=== PATIENT | male | born 1965 | race Caucasian/White ===

== ENCOUNTER 2017-02-14 16:43 | Inpatient (IN) | payer MEDICARE, MEDICAID ==
[~2017-02-14] VITALS: Ht 180.3 cm; Wt 74.0 kg
[~2017-02-14 16:43] MED LIST: DULO60CA44 PO; GABA-531 PO; OLAN15TA18 PO
[2017-02-14] MEDS ORDERED: TRAZ-144 PO (16:50)
[2017-02-14] MEDS ORDERED: RISP.5 PO (16:50)
[2017-02-14] MEDS ORDERED: PERCT10 PO (16:50)
[2017-02-14 18:08] LABS: BASOPHILS % (AUTO) 0.4 % (0.0-2.0); EOSINOPHILS % (AUTO) 3.2 % (1.0-6.0); HEMATOCRIT 39.1 % (41-53); HEMOGLOBIN 13.7 g/dL (13.5-17.5); LYMPHOCYTES # (AUTO) 0.9 K/uL (1.0-4.8); LYMPHOCYTES % (AUTO) 14.8 % (22.0-44.0); MEAN CORPUSCULAR HEMOGLOBIN 31.8 pg (26.0-34.0); MEAN CORPUSCULAR VOLUME 91 fL (80-100); MONOCYTES # (AUTO) 0.4 K/uL (0.1-1.0); MONOCYTES % (AUTO) 6.4 % (2.0-9.0); NEUTROPHILS # (AUTO) 4.3 K/uL (1.8-7.7); NEUTROPHILS % (AUTO) 75.2 % (40.0-70.0); PLATELET COUNT (AUTO) 219 K/uL (150-450); RED BLOOD CELL COUNT(AUTO) 4.31 MIL/uL (4.50-5.90); RED CELL DISTRIBUTION WIDTH 12.9 % (11.5-14.5); WHITE BLOOD COUNT (AUTO) 5.7 K/uL (4.5-11.0)
[2017-02-14 18:18] LABS: ANION GAP 6 mmol/L (8-16); CALCIUM, TOTAL 8.8 mg/dL (8.8-10.5); CARBON DIOXIDE 31 mmol/L (22-29); CHLORIDE 106 mmol/L (98-107); GLOMERULAR FILTR. RATE CALC > 60 mL/min (>60); POTASSIUM 4.3 mmol/L (3.5-5.1); SODIUM SERUM 143 mmol/L (136-145); UREA NITROGEN, BLOOD 21 mg/dL (7-18)
[2017-02-14 18:23] LABS: ALANINE AMINOTRANSFERASE 65 U/L (12-78); ALBUMIN 4.1 g/dL (3.4-5.0); ASPARTATE AMINOTRANSFERASE 30 U/L (15-37); BILIRUBIN,TOTAL 0.2 mg/dL (0.1-1.0); TOTAL PROTEIN, SERUM 6.7 g/dL (6.4-8.2)
[2017-02-14] MEDS ORDERED: LORazepam 2 MG TABLET PO ONE (18:45)
[2017-02-14] MEDS ORDERED: OxyCODONE HCL/ACETAMINOPHEN 5-325 MG TABLET PO ONE (19:15)
[2017-02-14 19:52] LABS: CHOL/HDL RATIO 2.8 (4.2-7.3)
[2017-02-14 21:00] VITALS: BP 123/78
[2017-02-14] MEDS ORDERED: ACETAMINOPHEN 325 MG TABLET PO PRN (21:30)
[2017-02-15 00:05] VITALS: BP 125/70
[2017-02-15] MEDS: ZOLPIDEM TARTRATE 10 MG TABLET PO PRN ×2 (00:08→20:58)
[2017-02-15 05:15] VITALS: BP 116/81
[2017-02-15] MEDS: IBUPROFEN 400 MG TABLET PO PRN (05:32)
[2017-02-15] MEDS: HALOPERIDOL 5 MG TABLET PO PRN ×2 (05:46→10:09)
[2017-02-15] MEDS: LORazepam 2 MG TABLET PO PRN ×2 (05:46→10:09)
[2017-02-15 08:28] VITALS: BP 130/54
[2017-02-15] MEDS: NICOTINE 14 MG/24 HOUR PATCH TD SCH (08:52)
[2017-02-15] MEDS: GABAPENTIN 300 MG CAPSULE PO SCH ×2 (14:02→17:11)
[2017-02-15 16:24] VITALS: BP 125/85
[2017-02-15] MEDS: DULoxetine HCL 60 MG CAPSULE PO SCH (17:11)
[2017-02-15] MEDS: RisperiDONE 0.5 MG TABLET PO SCH (17:11)
[2017-02-15] MEDS: TraZODone HCL 50 MG TABLET PO SCH (17:11)
[2017-02-16 01:50] VITALS: BP 115/85
[2017-02-16] MEDS: IBUPROFEN 400 MG TABLET PO PRN (01:57)
[2017-02-16] MEDS: HALOPERIDOL 5 MG TABLET PO PRN ×2 (01:57→08:18)
[2017-02-16] MEDS: LORazepam 2 MG TABLET PO PRN ×3 (01:57→14:35)
[2017-02-16] MEDS: NICOTINE 14 MG/24 HOUR PATCH TD SCH (08:18)
[2017-02-16] MEDS: GABAPENTIN 300 MG CAPSULE PO SCH ×3 (08:19→16:23)
[2017-02-16] MEDS: DULoxetine HCL 60 MG CAPSULE PO SCH ×2 (08:19→16:23)
[2017-02-16] MEDS: RisperiDONE 0.5 MG TABLET PO SCH ×2 (08:19→16:23)
[2017-02-16] MEDS: TraZODone HCL 50 MG TABLET PO SCH ×2 (08:19→16:23)
[2017-02-16] MEDS ORDERED: DENTURE ADHESIVE 68 GM CREAM DT PRN (10:45)
[2017-02-16 10:53] VITALS: BP 120/84
[2017-02-16 16:00] VITALS: BP 118/69
[2017-02-16] MEDS: ZOLPIDEM TARTRATE 10 MG TABLET PO PRN (20:43)
[2017-02-17 00:15] VITALS: BP 126/74
[2017-02-17] MEDS: IBUPROFEN 400 MG TABLET PO PRN ×2 (00:40→09:02)
[2017-02-17] MEDS: HALOPERIDOL 5 MG TABLET PO PRN ×4 (00:40→22:50)
[2017-02-17] MEDS: LORazepam 2 MG TABLET PO PRN ×4 (00:40→22:49)
[2017-02-17] MEDS: NICOTINE 14 MG/24 HOUR PATCH TD SCH (08:21)
[2017-02-17] MEDS: TraZODone HCL 50 MG TABLET PO SCH ×2 (08:22→16:17)
[2017-02-17] MEDS: GABAPENTIN 300 MG CAPSULE PO SCH ×3 (08:22→16:17)
[2017-02-17] MEDS: DULoxetine HCL 60 MG CAPSULE PO SCH ×2 (08:22→16:17)
[2017-02-17] MEDS: RisperiDONE 0.5 MG TABLET PO SCH ×2 (08:22→16:18)
[2017-02-17 08:50] VITALS: BP 134/93
[2017-02-17 10:00] VITALS: BP 128/87
[2017-02-17 17:02] VITALS: BP 114/83
[2017-02-18] MEDS: IBUPROFEN 400 MG TABLET PO PRN (04:58)
[2017-02-18] MEDS: LORazepam 2 MG TABLET PO PRN (04:58)
[2017-02-18 05:00] VITALS: BP 120/76
[2017-02-18] MEDS: DULoxetine HCL 60 MG CAPSULE PO SCH (08:13)
[2017-02-18] MEDS: TraZODone HCL 50 MG TABLET PO SCH (08:13)
[2017-02-18] MEDS: RisperiDONE 0.5 MG TABLET PO SCH (08:13)
[2017-02-18] MEDS: GABAPENTIN 300 MG CAPSULE PO SCH ×2 (08:14→12:28)
[2017-02-18] MEDS: NICOTINE 14 MG/24 HOUR PATCH TD SCH (08:14)
[2017-02-18 08:45] VITALS: BP 113/75
== END 2017-02-18 13:45 | disposition home or self-care (01) | DRG 885 ==
LOC: EMS 16:45 → 3EX 19:56
PROVIDERS: ADMIT Psychiatry & Neurology Psychiatry; ATTEND Psychiatry & Neurology Psychiatry
DX: F25.9 Schizoaffective disorder, unspecified (principal); R45.851 Suicidal ideations; F32.9 Major depressive disorder, single episode, unspecified; G89.29 Other chronic pain; M51.9 Unspecified thoracic, thoracolumbar and lumbosacral intervertebral disc disorder; M19.90 Unspecified osteoarthritis, unspecified site; F10.10 Alcohol abuse, uncomplicated; F19.10 Other psychoactive substance abuse, uncomplicated; F17.210 Nicotine dependence, cigarettes, uncomplicated; Z71.6 Tobacco abuse counseling; Z71.52 Counseling for family member of drug abuser; Z71.41 Alcohol abuse counseling and surveillance of alcoholic
CPT/HCPCS: 99285; G0480